=== PATIENT | female | born 2000 | race Caucasian/White ===

== ENCOUNTER 2022-02-28 17:41 | Observation (INO) | payer OTHER, MEDICAID, SELFPAY ==
[2022-02-28 18:15] VITALS: BP 131/81; PULSE 90
[2022-02-28 18:19] VITALS: BMI 46.4
--- NOTE | 2022-02-28 18:19 | OBADM ---
This patient, Juanjo Altamirano, admitted to the OB room Labor/Delivery/Recovery 118 for observation. Patient/family oriented to hospital policies and general routines including ID bracelet, bed and alarms, visiting hours, pain management, procedures, bathroom and other care routines, personal items, smoking policy, room service/diet, and visiting hours. Patient/Family are encouraged to report perceived risks to care and to ask questions if they do not understand what they are told or what they should do.
[2022-02-28 18:30] VITALS: BP 106/77; PULSE 94
[2022-02-28 18:45] VITALS: BP 124/78; PULSE 91
--- NOTE | 2022-03-04 07:56 | PM.OBTRLD ---
OB - Triage/Final Diagnosis Visit Information Reason for evaluation: decreased movement and threatened labor Comments/Additional reasons for admission: I have assessed the risk for this patient, Juanjo Altamirano, and determined that she would benefit from observation care.
== END 2022-02-28 18:49 | disposition home or self-care (01) ==
PROVIDERS: Admitting Provider Obstetrics & Gynecology Gynecology; Visit Provider Obstetrics & Gynecology Gynecology
DX: O47.03 False labor before 37 completed weeks of gestation, third trimester (principal); Z3A.28 28 weeks gestation of pregnancy
CPT/HCPCS: 59025; G0378; G0379

== ENCOUNTER 2022-03-13 13:48 | Outpatient (CLI) | payer OTHER, MEDICAID, SELFPAY ==
--- NOTE | ~2022-03-13 | US_ITS ---
EXAMINATION: US OB follow up DATE: 03/13/2022 14:26 INDICATION: Size greater than dates. TECHNIQUE: Real-time ultrasound of the pelvis was performed. COMPARISON: None. FINDINGS: There is a single living fetus in vertex presentation. The placenta is anterior. There is a 2.1 x 0. 8 cm hypoechoic mass in the placenta, likely a venous martinez. heart rate is 132 beats per minute (bpm). The amniotic fluid index is 18.6 cm, which is normal. The following biometric data were obtained: Biparietal diameter (BPD): 8.2 cm; head circumference (HC): 30.0 cm; abdominal circumference (AC): 27 .6 cm; femur length (FL): 6.1 cm. These measurements are concordant. Estimated weight is 1875 g +/- 281 g, which correlates with the 87th percentile when 05/19/22 is used as estimated date of delivery. As single measurements, these parameters are each equal to the following estimated gestational ages: BPD: 33 weeks 1 days. HC: 33 weeks 2 days. AC: 31 weeks 5 days. FL: 31 weeks 5 days. estimated gestational age based solely on measurements from this exam is 32 weeks 3 days +/- 2 weeks 2 days. IMPRESSION: 1. Single living fetus in vertex presentation. 2. Estimated weight is 1875 g +/- 281 g, which correlates with the 87th percentile when 05/19/22 is used as estimated date of delivery. Reviewed, dictated and finalized at location A. F SPECIALIST LEED
== END 2022-03-13 13:49 | disposition home or self-care (01) ==
PROVIDERS: Visit Provider Advanced Practice Midwife
DX: O24.414 Gestational diabetes mellitus in pregnancy, insulin controlled (principal); Z79.4 Long term (current) use of insulin; Z3A.32 32 weeks gestation of pregnancy
CPT/HCPCS: 76816

== ENCOUNTER 2022-04-02 12:50 | Observation (INO) | payer MEDICAID, SELFPAY ==
--- NOTE | ~2022-04-02 | US_ITS ---
EXAMINATION: US OB limited DATE: 04/02/2022 13:23 INDICATION: Abnormal biophysical profile. Third trimester. TECHNIQUE: Real-time ultrasound of the pelvis was performed. COMPARISON: Ultrasound 04/02/2022 FINDINGS: There is a single fetus in vertex presentation. The placenta is anterior. heart rate is 144 be ats per minute (bpm). The amniotic fluid index is 21.8 cm, which is normal. IMPRESSION: 1. Single living fetus in vertex presentation. 2. Normal amniotic fluid index. Reviewed, dictated and finalized at location A. ORTHOPEDIST
--- NOTE | ~2022-04-02 | US_ITS ---
EXAMINATION: US OB BPP wo non-stress DATE: 04/02/2022 12:22 INDICATION: Gestational diabetes. Decreased movement. Third trimester. TECHNIQUE: Real-time pelvic ultrasound was performed. COMPARISON: Ultrasound 03/13/2022 FINDINGS: There is a single living fetus in vertex presentation. The placenta is anterior. heart rate is 154 beats per minute (bpm). Biophysical profile performed by the technologist: breathing (30 sec sustained breathing in 30 minutes): 2 out of 2 movement (3 gross body movements in 30 minutes): 0 out of 2 tone (one episode of fbffuet-rlmhfoqrd-utmabxq limb movement): 2 out of 2 Amniotic fluid pocket (2 cm): 2 out of 2 Total score: 6 out of 8 IMPRESSION: 1. Single living fetus in vertex presentation. 2. Biophysical profile 6 out of 8. Reviewed, dictated and finalized at location A. LION CUTTER
[2022-04-02 14:07] VITALS: BP 143/80
[2022-04-02 15:46] LABS: Glucose Point of Care 152 mg/dl (65-105)
--- NOTE | 2022-04-11 08:19 | PM.OBTRLD ---
OB - Triage/Final Diagnosis Visit Information Reason for evaluation: decreased movement Comments/Additional reasons for admission: I have assessed the risk for this patient, Juanjo Kiki Altamirano, and determined that she would benefit from observation care. Evaluation Laboratory results: Laboratory Tests 04/02/22 15:43 POC Capillary Glucose 152 H
--- NOTE | 2022-04-14 09:50 | PM.OBTRLD ---
OB - Triage/Final Diagnosis Visit Information Reason for evaluation: other (elevated BP) Comments/Additional reasons for admission: I have assessed the risk for this patient, Juanjo Altamirano, and determined that she would benefit from observation care. Evaluation Laboratory results: Laboratory Tests 04/02/22 15:43 POC Capillary Glucose 152 H
== END 2022-04-02 17:45 | disposition home or self-care (01) ==
PROVIDERS: Admitting Provider Obstetrics & Gynecology Gynecology; Visit Provider Obstetrics & Gynecology Gynecology
DX: O24.419 Gestational diabetes mellitus in pregnancy, unspecified control (principal); O36.8130 Decreased fetal movements, third trimester, not applicable or unspecified; O28.3 Abnormal ultrasonic finding on antenatal screening of mother; Z3A.00 Weeks of gestation of pregnancy not specified
CPT/HCPCS: 59025; 76815; 76819; 82948; G0378; G0379

== ENCOUNTER 2022-04-12 19:30 | Outpatient (CLI) | payer MEDICAID, SELFPAY ==
[2022-04-12 19:53] VITALS: BP 148/85; PULSE 106; RESP 16; TEMP 36.4
[2022-04-12 19:55] VITALS: BMI 47.2
--- NOTE | 2022-04-12 19:55 | OBADM ---
This patient, Juanjo Altamirano, admitted to the OB room OB Post 117 for observation. Patient/family oriented to hospital policies and general routines including ID bracelet, bed and alarms, visiting hours, pain management, procedures, bathroom and other care routines, personal items, smoking policy, room service/diet, and visiting hours. Patient/Family are encouraged to report perceived risks to care and to ask questions if they do not understand what they are told or what they should do.
[2022-04-12 20:01] VITALS: BP 124/82; PULSE 99
[2022-04-12 20:11] LABS: Add Urine Microscopic? YES; Appearance Urine Clear (Clear); Bilirubin Urine Negative (Negative); Blood Urine Negative (Negative); Color Urine Yellow (Yellow); Glucose Urine UA Negative (Negative); Ketones Urine 1+ mg/dL (Negative); Leukocyte Esterase Ur Negative LEU/UL (Negative); Nitrate Urine Negative (Negative); Protein Urine 1+ mg/dL (Negative); Specific Grav Ur 1.015 (1.001-1.035); Urobilinogen Urine 0.2 mg/dL (<2.0)
[2022-04-12 20:16] VITALS: BP 129/88; PULSE 96
[2022-04-12 20:16] LABS: Mucus Urine Rare /lpf; RBC Urine 0-2 /hpf (0-2); Squamous Epithelial Cell Urine Many /hpf (Few); WBC Urine 0-3 /hpf
[2022-04-12 20:21] LABS: Alanine Aminotransferase 29 U/L (6-35); Albumin Level 3.7 g/dL (3.5-5.1); Alkaline Phosphatase 142 U/L (38-126); Anion Gap 7 mmol/L (8-16); Aspartate Amino Transferase 31 U/L (14-36); Bilirubin,Total 0.3 mg/dL (0.2-1.3); Blood Urea Nitrogen 8 mg/dL (7-17); Calcium 8.7 mg/dL (8.4-10.2); Carbon Dioxide 22 mmol/L (22-30); Chloride 108 mmol/L (98-107); Estimated CRCL calculation 218 ml/min; Estimated Glomerular Filt Rate > 60; Glucose 93 mg/dL (65-110); Potassium 3.7 mmol/L (3.4-5.0); Sodium 137 mmol/L (137-145); Uric Acid 5.1 mg/dL (2.5-7.5)
[2022-04-12 20:31] VITALS: BP 130/90; PULSE 90
[2022-04-12 20:46] VITALS: BP 117/75; PULSE 99
[2022-04-12 21:00] VITALS: PULSE 95
--- NOTE | 2022-04-12 21:11 | PC.NURSE ---
This RN verbally administered discharge instructions to PT. PT verbalized understanding. PT given opportunity to ask questions with all questions answered by RNYovanny. PT stable at this time. PT discharged ambulatory not in active labor.
[2022-04-17 06:54] VITALS: BP 128/73; PULSE 89
[2022-04-17 07:01] VITALS: BP 120/76; PULSE 93
== END 2022-04-12 21:10 | disposition home or self-care (01) ==
LOC: ANHOBOP 19:34 → ANHOBPP 19:43
PROVIDERS: Visit Provider Obstetrics & Gynecology Gynecology
DX: O13.9 Gestational [pregnancy-induced] hypertension without significant proteinuria, unspecified trimester (principal); Z3A.00 Weeks of gestation of pregnancy not specified
CPT/HCPCS: 36415; 80053; 81001; 84550; 99199

== ENCOUNTER 2022-04-16 16:43 | Outpatient (RCR) | payer MEDICAID, SELFPAY ==
[2022-04-03 17:15] VITALS: BP 123/84; PULSE 114
[2022-04-06 10:22] VITALS: BP 134/72; PULSE 103
[2022-04-09 11:08] VITALS: BP 112/74; PULSE 91
--- NOTE | ~2022-04-16 | US_ITS ---
EXAMINATION: US OB BPP wo non-stress DATE: 04/03/2022 17:03 INDICATION: Decreased movement during third trimester TECHNIQUE: Real-time pelvic ultrasound was performed. The interpreting radiologist was not present fo r the study. COMPARISON: 04/02/2022 FINDINGS: There is a single living fetus in vertex presentation. The placenta is anterior. heart rate is 142 beats per minute (bpm). Biophysical profile performed by the technologist: breathing (30 sec sustained breathing in 30 minutes): 2 out of 2 movement (3 gross body movements in 30 minutes): 2 out of 2 tone (one episode of smgkfig-rxwpoigzv-pmlcvfp limb movement): 2 out of 2 Amniotic fluid pocket (2 cm): 2 out of 2 Total score: 8 out of 8 IMPRESSION: 1. Single living fetus in vertex presentation. 2. Biophysical profile 8 out of 8. Reviewed, dictated and finalized at location F. MONITOR
[2022-04-16 17:48] VITALS: BP 128/90; PULSE 78
== END 2022-05-11 07:41 | disposition home or self-care (01) ==
LOC: ANHOBOP 16:43
PROVIDERS: Referring Provider Obstetrics & Gynecology Gynecology; Visit Provider Obstetrics & Gynecology Gynecology
DX: O36.8130 Decreased fetal movements, third trimester, not applicable or unspecified (principal); O24.419 Gestational diabetes mellitus in pregnancy, unspecified control; Z3A.33 33 weeks gestation of pregnancy; Z3A.34 34 weeks gestation of pregnancy; Z3A.35 35 weeks gestation of pregnancy
CPT/HCPCS: 59025; 76819; 96365; 96374; 96375; A9270; J1200; J1756

== ENCOUNTER 2022-04-17 04:20 | Inpatient (IN) | payer MEDICAID, SELFPAY ==
[2022-04-17] VITALS (185 sets, daily range): BP systolic 87–163; BP diastolic 32–139; PULSE 71–163; TEMP 36.2–36.6; O2SAT 96–100; BMI 47.2
[2022-04-17] MEDS: LABETALOL HCL 100 MG TABLET 200 MG PO (05:00)
--- NOTE | 2022-04-17 05:10 | LDADM ---
This patient, Juanjo Altamirano, was admitted to Labor/Delivery/Recovery 102 on 04/17/22 at 04:20. Plans for labor, pain management and were discussed with patient. Patient/family oriented to hospital policies and general routines including ID bracelet, bed and alarms, visiting hours, pain management, procedures, bathroom and other care routines, personal items, smoking policy, room service/diet and guest tray routines, security routines, and visiting hours. Patient/Family are encouraged to report perceived risks to care and to ask questions if they do not understand what they are told or what they should do. See OBIX for further documentation.
[2022-04-17] MEDS: LACTATED RINGERS 1,000 ML 125 ML IV CONT ×2 (05:17→14:14)
[2022-04-17] MEDS: AMPICILLIN 2 GM/NS 100 ML 2 GM/100 ML BAG IVPB (05:17)
[2022-04-17] MEDS: BETAMETHASONE SOD PHOS/ACETATE 30 MG/5 ML VIAL 12.5 MG IM (05:28)
[2022-04-17 05:50] LABS: Basophils Percent Auto 0.2 % (0.2-1.2); Eosinophils Absolute Auto 0.1 K/mm3 (0-0.3); Eosinophils Percent Auto 1.2 % (0-4.4); Hemoglobin 11.2 g/dL (12.0-15.0); Immature Granulocyte Absolute 0.03 K/mm3 (0.00-0.031); Immature Granulocyte Percent A 0.3 % (0-0.5); Lymphocytes Absolute Auto 2.43 K/mm3 (0.9-3.2); Mean Corpuscular HGB Conc 32.9 g/dl (32-36); Mean Corpuscular Hemoglobin 29.2 pg (26-34); Mean Corpuscular Volume 88.8 fl (80-100); Mean Platelet Volume 11.1 fl (7.4-10.4); Monocytes Absolute Auto 0.7 K/mm3 (0.1-0.6); Monocytes Percent Auto 8.1 % (2.6-8.5); Neutrophils Absolute Auto 5.4 K/mm3 (1.3-6.7); Neutrophils Percent Auto 62.2 % (45.5-73.1); Platelet Count Result 204 k/mm3 (150-375); Red Blood Count 3.83 M/mm3 (4.2-5.4); Red Cell Distribution Width 13.7 % (11.5-14.5); White Blood Count 8.7 K/mm3 (4.5-10.0)
[2022-04-17 05:55] LABS: Uric Acid 5.2 mg/dL (2.5-7.5)
--- NOTE | 2022-04-17 06:06 | WPDANESEPP ---
Anes - Eval Pre Procedure Procedure: Labor epidural Date/Time: 04/17/22 06:06 Surgeon: Micha Preop Diagnosis: Abd pain with contractions Pre Op Diagnosis: Leaking Fluid Patient Data Age: 21 Gender: F Height: 1.73 m Weight: 141 kg Last Vital Signs Pulse 100 04/17/22 05:00 BP 160/139 H 04/17/22 06:00 O2 Del Method Room Air 04/17/22 05:07 Allergies Allergy/AdvReac Type Severity Reaction Status Date / Time latex AdvReac Unknown Swelling Verified 04/09/22 13:20 Home Medications Medication Instructions Recorded Confirmed Type famotidine 20 mg tablet 20 mg PO BID 03/26/22 04/09/22 History fluoxetine 20 mg capsule (Prozac) 20 mg PO DAILY 03/26/22 04/09/22 History insulin lispro-aabc 100 unit/mL 10 unit subcut QACDINNER 03/26/22 04/09/22 History subcutaneous solution labetalol 100 mg tablet 100 mg PO Q12H 03/26/22 04/09/22 History cholecalciferol (vitamin D3) 125 125 mcg PO DAILY 04/03/22 04/09/22 History mcg (5,000 unit) tablet (Vitamin D3) insulin NPH isoph U-100 human 100 10 unit subcut HS 04/03/22 04/09/22 History unit/mL subcutaneous suspension (Humulin N NPH U-100 Insulin (isophane susp)) Laboratory Tests 04/17/22 04/17/22 04/17/22 05:24 05:24 05:24 WBC 8.7 K/mm3 K/mm3 (4.5-10.0) RBC 3.83 M/mm3 L M/mm3 (4.2-5.4) Hgb 11.2 g/dL L g/dL (12.0-15.0) Hct 34.0 % L % (37.0-47.0) MCV 88.8 fl fl (80-100) MCH 29.2 pg pg (26-34) MCHC 32.9 g/dl g/dl (32-36) RDW 13.7 % % (11.5-14.5) Plt Count 204 k/mm3 k/mm3 (150-375) MPV 11.1 fl H fl (7.4-10.4) Immature Gran % (Auto) 0.3 % % (0-0.5) Neut % (Auto) 62.2 % % (45.5-73.1) Lymph % (Auto) 28.0 % % (18.3-44.2) [place] % (Auto) 8.1 % % (2.6-8.5) Eos % (Auto) 1.2 % % (0-4.4) Baso % (Auto) 0.2 % % (0.2-1.2) Lymph # (Auto) 2.43 K/mm3 K/mm3 (0.9-3.2) [place] # (Auto) 0.7 K/mm3 H K/mm3 (0.1-0.6) Eos # (Auto) 0.1 K/mm3 K/mm3 (0-0.3) Baso # (Auto) 0.0 K/mm3 K/mm3 (0.0-0.1) Abs Immat Gran (auto) 0.03 K/mm3 K/mm3 (0.00-0.031) Absolute Neuts (auto) 5.4 K/mm3 K/mm3 (1.3-6.7) Absolute Nucleated RBC 0.0 K/mm3 K/mm3 (0.0-0.012) Nucleated RBC % 0.0 % % (0.0-0.2) Sodium Potassium Chloride Carbon Dioxide Anion Gap BUN Creatinine Estim Creat Clear Calc Estimated GFR Glucose Uric Acid 5.2 mg/dL mg/dL (2.5-7.5) Calcium Total Bilirubin AST ALT Alkaline Phosphatase Total Protein Albumin RPR Pending 04/17/22 05:24 WBC RBC Hgb Hct MCV MCH MCHC RDW Plt Count MPV Immature Gran % (Auto) Neut % (Auto) Lymph % (Auto) [place] % (Auto) Eos % (Auto) Baso % (Auto) Lymph # (Auto) [place] # (Auto) Eos # (Auto) Baso # (Auto) Abs Immat Gran (auto) Absolute Neuts (auto) Absolute Nucleated RBC Nucleated RBC % Sodium Pending Potassium Pending Chloride Pending Carbon Dioxide Pending Anion Gap Pending BUN Pending Creatinine Pending Estim Creat Clear Calc Pending Estimated GFR Pending Glucose Pending Uric Acid Calcium Pending Total Bilirubin Pending AST Pending ALT Pending Alkaline Phosphatase Pending Total Protein Pending Albumin Pending RPR Patient hx anesthesia problems: none Family hx anesthesia problems: none Results Review: All pre-operative results and documents have been review
[2022-04-17 06:19] LABS: Alanine Aminotransferase 30 U/L (6-35); Albumin Level 3.7 g/dL (3.5-5.1); Alkaline Phosphatase 145 U/L (38-126); Anion Gap 8 mmol/L (8-16); Aspartate Amino Transferase 29 U/L (14-36); Bilirubin,Total 0.3 mg/dL (0.2-1.3); Blood Urea Nitrogen 6 mg/dL (7-17); Calcium 9.3 mg/dL (8.4-10.2); Carbon Dioxide 22 mmol/L (22-30); Chloride 103 mmol/L (98-107); Estimated CRCL calculation 185 ml/min; Estimated Glomerular Filt Rate > 60; Glucose 102 mg/dL (65-110); Potassium 3.6 mmol/L (3.4-5.0); Sodium 133 mmol/L (137-145)
--- NOTE | 2022-04-17 07:09 | WPDOBADMIT ---
Obstetrics - Admit Note Admission Note: record reviewed. No pertinent additions to the history and/or any subsequent changes in the physical findings that are not consistent with the expected course of the were found. Additions to the history and/or subsequent changes in the physical findings follow. Premature ROM at 0300, clear fluid
[2022-04-17] MEDS: ERYTHROMYCIN LACTOBIONATE INJ 250 MG in SODIUM CHLORIDE 0.9% IV 100 ML 200 MG IVPB ×3 (07:27→20:52)
--- NOTE | 2022-04-17 07:31 | PM.OBPNLAB ---
Pain Control Date/time seen: 04/17/22 0640 Pain control: tolerating well Comments: Denies pain Contractions Monitor mode: None Status status: Category l Assessment and Plan Comments: Discussed plan of care with Juanjo and her partner. Given PROM in the setting of preeclampsia, would recommend IOL. Pt agreeable. Plan for cytotec and then oxytocin. Discussed expectations and possible outcomes of including respiratory support and possible transfer to higher level nursery. Discussed GDM and plan for blood sugar checks and possible insulin drip. Plan Tylenol for her headache and Compazine if no relief. BPs mostly mild range with 1 severe, no sustained severe range BPs. Discussed possibility of magnesium sulfate if severe range BPs are sustained.
--- NOTE | 2022-04-17 07:35 | PM.IMHP ---
H&P: HPI History of Present Illness Date/Time: 04/17/22 07:[id number] Chief Complaint: Premature prelabor ROM at 0300 with large amount of clear fluid. Headache. Narrative: Juanjo is resting in bed and denies feeling any pain or having any contractions. She has a headache which began yesterday evening. She last took Tylenol at 2200 04/16/21. Review of Systems Review of Systems: All systems reviewed & are unremarkable except as noted in HPI and below PMFSH Past Medical History Medical History Diabetes HTN (hypertension) with goal to be determined Morbid obesity Preeclampsia and not yet delivered Smoker Vapes nicotine containing substance Social History Social History Smoking packs per day: 0.5 Smoking cigarettes per day: 10.0 Years smoked: 12 Smoking pack-years: 6.00 Smoking status: Current every day smoker Tobacco type: e-cigarettes/vaping Lack of Transportation: No Lack of Food: Never True Current Housing: I Have Housing Concerned About Future Housing: No Difficulty Paying Gas/Electric Bills: No Difficulty Paying for Meds: No Currently Unemployed: No Education: High School Diploma/GED Difficulty w/ Childcare or Family Care: No Spiritual care concerns: No Meds Home Medications and Allergies Home Medications Medication Instructions Recorded Confirmed Type famotidine 20 mg tablet 20 mg PO BID 03/26/22 04/09/22 History fluoxetine 20 mg capsule (Prozac) 20 mg PO DAILY 03/26/22 04/09/22 History insulin lispro-aabc 100 unit/mL 10 unit subcut QACDINNER 03/26/22 04/09/22 History subcutaneous solution labetalol 100 mg tablet 100 mg PO Q12H 03/26/22 04/09/22 History cholecalciferol (vitamin D3) 125 125 mcg PO DAILY 04/03/22 04/09/22 History mcg (5,000 unit) tablet (Vitamin D3) insulin NPH isoph U-100 human 100 10 unit subcut HS 04/03/22 04/09/22 History unit/mL subcutaneous suspension (Humulin N NPH U-100 Insulin (isophane susp)) Allergies Allergy/AdvReac Type Severity Reaction Status Date / Time latex AdvReac Unknown Swelling Verified 04/09/22 13:20 Vital Signs Vital Signs - 24 hr 04/17/22 04:31 04/17/22 04:45 04/17/22 05:00 Pulse Rate 131 H 116 H 103 H Blood Pressure 150/104 H 158/108 H 156/106 H Oxygen Delivery 04/17/22 06:00 04/17/22 06:30 04/17/22 05:07 Pulse Rate 89 Blood Pressure 160/139 H 163/90 H Oxygen Delivery Room Air 04/17/22 05:00 Pulse Rate 100 Blood Pressure Oxygen Delivery Exam Const: General: comfortable and no acute distress Resp: Effort & Inspection: normal respiratory effort Auscultation: clear to auscultation bilaterally Cardio: Rate: regular rate GI: GI Palp: Yes Soft to palpation Other: gravid : Other: clear amniotic fluid leaking from vagina Skin: General skin exam: normal color and no rashes or lesions noted Neuro: General: deep tendon reflexes 2+ bilaterally Speech: normal speech Other: Negative clonus Extrem: General: edema (1+) bilateral Psych: Mental Status: mental status grossly normal Affect: normal affect H&P: Results Labs Labs: Short CBC 04/17/22 Range/Units 05:24 WBC 8.7 (4.5-10.0) K/mm3 Hgb 11.2 L (12.0-15.0) g/dL Hct 34.0 L (37.0-47.0) % Plt Count 204 (150-375) k/mm3 BMP 04/17/22 05:24 Sodium 133 L Potassium 3.6 Chloride 103 Carbon Dioxide 22 BUN 6 L Creatinine 0.60 L Glucose 102 Calcium 9.3 Liver Function 04/17/22 Range/Units 05:24 Total Bilirubin 0.3 (0.2-1.3) mg/dL AST 29 (14-36) U/L ALT 30 (6-35) U/L Alkaline Phosphatase 145 H (38-126) U/L Albumin 3.7 (3.5-5.1) g/dL Assessment and Plan Assessment and plan (1) Chronic hypertension affecting : Code(s): O10.919 - Unspecified pre-existing hypertension complicating , unspecified trimester Status: Acute (2) Preeclampsia:
[2022-04-17] MEDS: ONDANSETRON INJ 4 MG/2 ML VIAL IV PUSH (07:43)
[2022-04-17] MEDS: miSOPROStol 25 MCG TABLET VAGINAL (08:05)
[2022-04-17] MEDS: FLUoxetine HCL 20 MG CAPSULE PO (08:20)
[2022-04-17] MEDS: AMPICILLIN 1 GM/NS 50 ML 1 GM/50 ML BAG IVPB ×4 (09:22→22:14)
[2022-04-17 09:28] LABS: Glucose Point of Care 136 mg/dl (65-105)
[2022-04-17] MEDS: PROCHLORPERAZINE MALEATE 5 MG TABLET 10 MG PO (09:46)
[2022-04-17 11:30] LABS: Glucose Point of Care 119 mg/dl (65-105)
[2022-04-17] MEDS: OXYTOCIN 30 UNITS/NS 500 ML 30 UNITS/500 ML BAG IV CONT (12:34)
--- NOTE | 2022-04-17 12:44 | PM.OBPNLAB ---
Pain Control Date/time seen: 04/17/22 12:20 Pain control: tolerating well Pelvic Exam Dilation (cm): 3 Effacement (%): 70 station: -4 Amniotic membrane status: Ruptured Contractions Monitor mode: None Contraction frequency: 4 Contraction pattern: Irregular Contraction phase: Contraction Contraction intensity: Mild Status status: Category l Assessment and Plan Comments: Discussed plan of care with pt and her partner. Discussed placing IUPC to enhance assessment of uterine contraction pattern. Pt agreeable. IUPC placed easily and returned with clear fluid. Plan to begin pitocin augmentation at this time. Continue IV antibiotics and accuchecks. Recommend frequent position changes to facilitate optimal positioning and descent.
[2022-04-17 14:32] LABS: Rapid Plasma Reagin Non-Reactive (NonReactive)
[2022-04-17 16:12] LABS: Glucose Point of Care 127 mg/dl (65-105)
[2022-04-17 17:03] LABS: Glucose Point of Care 105 mg/dl (65-105)
[2022-04-17 18:54] LABS: Glucose Point of Care 96 mg/dl (65-105)
[2022-04-17 22:27] LABS: Glucose Point of Care 94 mg/dl (65-105)
[2022-04-18] VITALS (192 sets, daily range): BP systolic 87–165; BP diastolic 47–119; PULSE 69–148; RESP 16–18; TEMP 36.3–37.1; O2SAT 84–100
[2022-04-18 00:50] LABS: Glucose Point of Care 108 mg/dl (65-105)
[2022-04-18] MEDS: LACTATED RINGERS 1,000 ML 125 ML IV CONT ×2 (02:24→11:14)
[2022-04-18] MEDS: AMPICILLIN 1 GM/NS 50 ML 1 GM/50 ML BAG IVPB ×3 (02:26→10:34)
[2022-04-18] MEDS: ERYTHROMYCIN LACTOBIONATE INJ 250 MG in SODIUM CHLORIDE 0.9% IV 100 ML 200 MG IVPB ×2 (03:17→09:06)
[2022-04-18 04:41] LABS: Glucose Point of Care 108 mg/dl (65-105)
[2022-04-18] MEDS: BETAMETHASONE SOD PHOS/ACETATE 30 MG/5 ML VIAL 12.5 MG IM (05:21)
[2022-04-18 06:52] LABS: Glucose Point of Care 105 mg/dl (65-105)
[2022-04-18 08:29] LABS: Glucose Point of Care 111 mg/dl (65-105)
[2022-04-18] MEDS: FAMOTIDINE 20 MG/2 ML VIAL IV PUSH (09:20)
[2022-04-18 10:46] LABS: Glucose Point of Care 115 mg/dl (65-105)
[2022-04-18] MEDS: INSULIN ASPART (*BKC) 100 UNITS/ML SUB-Q (11:00)
[2022-04-18] MEDS: FLUoxetine HCL 20 MG CAPSULE PO (11:09)
--- NOTE | 2022-04-18 12:10 | PM.OBPRVD ---
OB - Delivery Note Procedure Delivery date: 04/18/22 Procedure: Events: Gestational Diabetes (GDMA2), Preeclampsia w/o severe features and Other (PPROM) Induction method: Per Pitocin Protocol Delivery monitor: External FHT and Internal Uterine Route of delivery: Laceration Description: None Specimen: Yes (placenta) Quantitative Blood Loss (ml): 75 Anesthesia type: Epidural Disposition: Floor Baby Date of : 04/18/22 Weeks of gestation at delivery: 35 Infant gender: Male presentation: vertex position: Right Occiput Anterior Placenta delivery description: Spontaneous Cord Vessel Description: Around Body (around right shoulder) and Around Extremity (both feet) Narrative: peds with infant and Apgars not yet assigned
--- NOTE | 2022-04-18 12:12 | PM.OBDSVD ---
DS: Admitting Diagnosis Discharge Date 04/19/22 Admitting Diagnosis IUP 35 4/7 wks with PPROM GDMA2 Preeclampsia DS: Discharge Diagnosis Discharge Diagnosis (1) premature rupture of membranes: Code(s): O42.919 - premature rupture of membranes, unspecified as to length of time between rupture and onset of labor, unspecified trimester Status: Acute (2) Preeclampsia: Code(s): O14.90 - Unspecified pre-eclampsia, unspecified trimester Status: Acute (3) 35 weeks gestation of : Code(s): Z3A.35 - 35 weeks gestation of Status: Acute (4) GDM, class A2: Code(s): O24.419 - Gestational diabetes mellitus in , unspecified control Status: Acute (5) (normal spontaneous vaginal delivery): Code(s): O80 - Encounter for full-term uncomplicated delivery Status: Acute OB - DS: Summary OB Procedures : NST, PIH Mgmt and Ultrasound OB Procedures Intrapartum: Spontaneous Vag Delivery OB Procedures: : None Peripartum Data Infant Delivery Method: Natural Vaginal Laceration Description: None complications: none Status at Discharge Functional status at discharge: independent ambulation Overall status at discharge: patient is progressing back to baseline Time Spent with Patient Time attestation: Total time spent providing and/or coordinating discharge services: DS: Data Data Completed and Pending Labs on day of discharge: Labs from last 24 hours 04/18/22 04/18/22 04/18/22 10:38 08:27 06:26 POC Capillary Glucose 115 H 111 H 105 RPR 04/18/22 04/18/22 04/17/22 04:36 00:47 21:15 POC Capillary Glucose 108 H 108 H 94 RPR 04/17/22 04/17/22 04/17/22 18:46 16:59 16:08 POC Capillary Glucose 96 105 127 H RPR 04/17/22 05:24 POC Capillary Glucose RPR Non-reactive Discharge Plan Discharge Attending physician on discharge: Robyn Muse Discharging Clinician: Robyn Muse Anticipated Discharge Date/Time: 04/20/22 12:14 Patient Disposition: Home, Self-Care Activity: may shower and pelvic rest Diet: regular Patient Instructions: Antibiotic Form Stand Alone Forms: General Discharge Information Follow-up/Referrals: Robyn Muse MD [Physician] - 1 Week (and 6 wk) Discharge Medications: New norethindrone (contraceptive) 0.35 mg tablet 0.35 mg PO DAILY Qty: 84 3RF Continued famotidine 20 mg Tablet 20 mg PO BID labetalol 100 mg Tablet 200 mg PO Q12H fluoxetine [Prozac] 20 mg Capsule 20 mg PO DAILY cholecalciferol (vitamin D3) [Vitamin D3] 125 mcg (5,000 unit) Tablet 125 mcg PO DAILY Rx Instructions: Takes Friday through Friday only Discontinued insulin lispro-aabc 100 unit/mL Solution 10 unit SUBCUT QACDINNER Rx Instructions: 30 min before dinner Humulin N NPH U-100 Insulin 100 unit/mL Suspension 15 unit SUBCUT HS Date of admission: 04/17/22 04:20 Primary Care Provider: PHYSICIAN,SMART GRID ENGINEER Admitting Provider: Robyn Muse Attending physician on admission: Robyn Muse Condition: Stable
[2022-04-18] MEDS: OXYTOCIN 30 UNITS/NS 500 ML 30 UNITS/500 ML BAG 999 UNITS IV CONT (12:17)
[2022-04-18 12:32] LABS: Glucose Point of Care 106 mg/dl (65-105)
[2022-04-18] MEDS: WITCH HAZEL 40 PADS 1 PAD TOPICAL (13:38)
[2022-04-18] MEDS: LABETALOL HCL 100 MG TABLET 200 MG PO (21:06)
[2022-04-19 05:00] VITALS: BP 135/90; PULSE 86; RESP 16; TEMP 36.5
--- NOTE | 2022-04-19 07:19 | WPDANLDPN2 ---
Anes-Prog Note L&D Date/Time: 04/19/22 07:19 Comfortable throughout: labor and delivery Neuraxial method: epidural Epidural/Spinal procedure site: clean & non-tender Neuro status: Neuro function grossly intact. Cardiovascular status: normal Respiratory status: normal Airway patency: baseline Mental status: baseline Post-Op hydration status: normal Vital Signs: Last Vital Signs Temp 36.5 C 04/19/22 05:00 Pulse 86 04/19/22 05:00 Resp 16 04/19/22 05:00 BP 135/90 04/19/22 05:00 Pulse Ox 98 04/18/22 14:30 O2 Del Method Room Air 04/18/22 14:30 Pain score (VAS): 04/23 I/O: Intake & Output 04/18/22 04/18/22 04/19/22 15:59 23:59 07:59 Intake Total 1600 1500 1000 Output Total 75 900 Balance 1525 1500 100 Post-procedural complaints: none Patient feedback: Patient satisfied with anesthetic care.
[2022-04-19 07:50] VITALS: BP 132/84; PULSE 81; RESP 16; TEMP 36.7; O2SAT 99
--- NOTE | 2022-04-19 08:00 | PM.OBPNVD ---
OB - PN: Subj Subjective Date/time seen: 04/19/22 08:00 Patient comments: no complaints and pain well controlled baby status: doing well (at [facility] down to room air cpap) OB - PN: Obj Data Labs 04/17/22 05:24 04/17/22 05:24 Labs: Laboratory Results - last 24 hr 04/18/22 04/18/22 04/18/22 08:27 10:38 12:23 POC Capillary Glucose 111 H 115 H 106 H OB - PN A/P Plan day: 1 Plan: routine care, discharge home and other (follow up BP 1 wk; continue to check at home) Time Spent With Patient Time: Total time spent is greater than 50% in coordination of care (as documented) at patient's floor/unit and/or counseling patient: Exam : Bimanual exam- vagina & uterus: other (Uterus firm, nt @U)
[2022-04-19 08:34] VITALS: PULSE 72
[2022-04-19] MEDS: LABETALOL HCL 100 MG TABLET 200 MG PO (08:34)
[2022-04-19] MEDS: FLUoxetine HCL 20 MG CAPSULE PO (08:34)
[2022-04-19] MEDS: DOCUSATE SODIUM 100 MG CAPSULE PO (08:35)
[2022-04-19] MEDS: MULTIVIT/MIN/PREN/FOL AC/IRON TABLET 1 TAB PO (08:35)
[2022-04-19 10:19] LABS: Hematocrit 31.1 % (37.0-47.0); Hemoglobin 10.2 g/dL (12.0-15.0)
[2022-04-20 08:47] VITALS: BP 140/91; PULSE 70; RESP 20; TEMP 37; O2SAT 99
== END 2022-04-19 10:53 | disposition home or self-care (01) | DRG 560 ==
LOC: ANHLDR 04-18 12:14 → ANHOB2 04-18 14:54
PROVIDERS: Advanced Practice Midwife; Admitting Provider Obstetrics & Gynecology Gynecology; Visit Provider Obstetrics & Gynecology Gynecology
DX: O60.14X0 Preterm labor third trimester with preterm delivery third trimester, not applicable or unspecified (principal); E66.01 Morbid (severe) obesity due to excess calories; O99.334 Smoking (tobacco) complicating childbirth; F17.290 Nicotine dependence, other tobacco product, uncomplicated; O14.04 Mild to moderate pre-eclampsia, complicating childbirth; O99.214 Obesity complicating childbirth; O69.82X0 Labor and delivery complicated by other cord entanglement, without compression, not applicable or unspecified; O10.92 Unspecified pre-existing hypertension complicating childbirth; O99.344 Other mental disorders complicating childbirth; F41.9 Anxiety disorder, unspecified; F32.A Depression, unspecified; O99.284 Endocrine, nutritional and metabolic diseases complicating childbirth; E28.2 Polycystic ovarian syndrome; O76 Abnormality in fetal heart rate and rhythm complicating labor and delivery; O24.424 Gestational diabetes mellitus in childbirth, insulin controlled; Z3A.35 35 weeks gestation of pregnancy; Z37.0 Single live birth
CPT/HCPCS: 36415; 80053; 82948; 84112; 84550; 85014; 85018; 85025; 86592; 86850; 86900; 86901; 88307; A9270; J0290; J0702; J1364; J1815; J2405; J2590; J2795; J7120